=== PATIENT | female | born 1960 | race Caucasian/White ===

== ENCOUNTER → 2018-03-29 | Emergency (ER) | payer OTHER ==
[~2018-03-29] VITALS: Ht 165.1 cm; Wt 73.0 kg
[~2018-03-29] MED LIST: ULTRAM50 MG PO
[2018-03-29 00:47] VITALS: BP 153/91
== END | disposition home or self-care (01) ==
LOC: EME 00:44
DX: S93.602A Unspecified sprain of left foot, initial encounter (principal); W17.81XA Fall down embankment (hill), initial encounter; Z85.41 Personal history of malignant neoplasm of cervix uteri
CPT/HCPCS: 73610; 73630; 99281; 99284